=== PATIENT | male | born 1975 | race Asian ===

== ENCOUNTER 2017-05-26 04:12 | Emergency (ER) | payer BC ==
[~2017-05-26] VITALS: Ht 172.7 cm; Wt 99.8 kg
[2017-05-26 04:56] LABS: PLATELET COUNT 300 K/uL (142-355)
[2017-05-26 05:00] LABS: POTASSIUM 3.9 mmol/L (3.6-5.2)
[2017-05-26 05:46] VITALS: BP 132/79; TEMP 98
== END 2017-05-26 05:49 | disposition home or self-care (01) ==
LOC: ED 04:12
DX: N20.1 Calculus of ureter (principal)
CPT/HCPCS: 80053; 85027; 96365; 96374; 96375; 99284; J1885; J2405

== ENCOUNTER 2018-01-08 17:25 | Emergency (ER) | payer BC ==
[~2018-01-08] VITALS: Ht 172.7 cm; Wt 92.1 kg
[2018-01-08 18:00] LABS: PLATELET COUNT 270 K/uL (142-355)
[2018-01-08 18:15] LABS: SODIUM 140 mmol/L (136-145)
[2018-01-08 19:06] VITALS: BP 141/88; TEMP 97.7
== END 2018-01-08 19:07 | disposition home or self-care (01) ==
LOC: ED 17:25
PROVIDERS: Emergency Medicine
DX: R07.89 Other chest pain (principal)
CPT/HCPCS: 36415; 80053; 82550; 84484; 85027; 93005; 99284

== ENCOUNTER 2018-06-07 02:35 | Emergency (ER) | payer OTHER ==
[~2018-06-07] VITALS: Ht 172.7 cm; Wt 100.7 kg
[2018-06-07 05:12] VITALS: BP 136/88; TEMP 98
== END 2018-06-07 05:15 | disposition home or self-care (01) ==
LOC: ED 02:35
DX: R10.9 Unspecified abdominal pain (principal); R11.0 Nausea; R81 Glycosuria; E13.69 Other specified diabetes mellitus with other specified complication
CPT/HCPCS: 81000; 96372; 99283; J1885; J2270; J2405

== ENCOUNTER 2019-03-18 20:27 | Emergency (ER) | payer BC ==
[~2019-03-18] VITALS: Ht 172.7 cm; Wt 95.3 kg
[2019-03-18 22:32] VITALS: BP 119/81; TEMP 98.3
== END 2019-03-18 22:26 | disposition home or self-care (01) ==
LOC: ED 20:27
DX: M77.9 Enthesopathy, unspecified (principal)
CPT/HCPCS: 96372; 99283; J1885; J2930